=== PATIENT | male | born 1960 | race Caucasian/White ===

== ENCOUNTER 2022-04-02 09:41 | Outpatient (CLI) | payer BC | END 2022-04-02 09:42 | disposition home or self-care (01) | LOC: NAV RAD 09:41 | PROVIDERS: ATTEND Family Medicine | DX: M25.561 Pain in right knee (principal) ==

== ENCOUNTER 2023-04-08 10:08 | Outpatient (CLI) | payer BC, OTHER | END 2023-04-08 10:09 | disposition home or self-care (01) | LOC: NAV RAD 10:08 | PROVIDERS: ATTEND Nurse Practitioner Family | DX: J06.9 Acute upper respiratory infection, unspecified (principal) | CPT/HCPCS: 71046 ==